=== PATIENT | female | born 1995 | race Caucasian/White ===

== ENCOUNTER 2018-02-06 18:29 | Emergency (ER) | payer MEDICAID ==
[2018-02-06] MEDS ORDERED: Sulfamethoxazole/Trimethoprim 800-160 MG Tab PO ONE ×2 (20:14→21:00)
[2018-02-06] MEDS ORDERED: Sulfamethoxazole/Trimethoprim 800-160 MG Tab ONE (20:59)
--- NOTE | 2018-02-07 00:12 | EDM.PDOC ---
ED HPI GENERAL MEDICAL PROBLEM - General Chief Complaint: Upper Extremity Injury/Pain Stated Complaint: CUT L FINGER Time Seen by Provider: 02/06/18 19:30 Source of Information: Reports: Patient History Limitations: Reports: No Limitations - History of Present Illness INITIAL COMMENTS - FREE TEXT/NARRATIVE: c/o knife injury L hand at home a kitchen knife entered palm of L hand works making medical parts, uses hands - Related Data Allergies Allergy/AdvReac Type Severity Reaction Status Date / Time codeine Allergy Hives Verified 08/26/14 07:55 Penicillins Allergy Hives Verified 08/26/14 07:55 Pertussis Vaccines Allergy Other Verified 02/06/18 19:09 Home Meds: Home Meds Sulfamethoxazole/Trimethoprim [Bactrim Ds Tablet] 1 each PO BID #14 tablet 02/06 [Rx] Past Medical History Cardiovascular History: Reports: Arrhythmia Social & Family History - Family History Family Medical History: Noncontributory - Tobacco Use Smoking Status *Q: Never Smoker - Caffeine Use Caffeine Use: Reports: None - Recreational Drug Use Recreational Drug Use: No Review of Systems - Review of Systems Review Of Systems: See Below Constitutional: Reports: No Symptoms Eyes: Reports: No Symptoms Ears: Reports: No Symptoms Nose: Reports: No Symptoms Mouth/Throat: Reports: No Symptoms Respiratory: Reports: No Symptoms Cardiovascular: Reports: No Symptoms GI/Abdominal: Reports: No Symptoms Genitourinary: Reports: No Symptoms Musculoskeletal: Reports: No Symptoms Skin: Reports: Wound Neurological: Reports: No Symptoms Psychiatric: Reports: No Symptoms ED EXAM, GENERAL - Physical Exam Exam: See Below Exam Limited By: No Limitations General Appearance: Alert, WD/WN, No Apparent Distress Skin Exam: Other (L hand with 5 mm entry wound over distal 5th MC just proximal to the 5th MCP, full flex/ext at DIP and PIP, LT intact, linear, wound margins only 1 mm, depth perhaps 7-8 mm as per estimated of , likely hit bone altho no bony tenderness) Course - Vital Signs Last Recorded V/S: Last Vital Signs Temp 36.4 C 02/06/18 18:29 Pulse 62 02/06/18 18:29 Resp 20 02/06/18 18:29 BP 118/85 02/06/18 18:29 Pulse Ox 100 02/06/18 18:29 - Orders/Labs/Meds Meds: Medications Discontinued Medications Generic Name Dose Route Start Last Admin Trade Name Hermes PRN Reason Stop Dose Admin Trimethoprim/Sulfamethoxazole Confirm 02/06/18 20:59 Septra Ds Administered 02/06/18 21:00 Dose 1 tab .ROUTE .STK-MED ONE Trimethoprim/Sulfamethoxazole 1 tab 02/06/18 20:14 Septra Ds PO 02/06/18 20:15 ONETIME ONE Departure - Departure Time of Disposition: 20:12 Disposition: Home, Self-Care 01 Condition: Good Clinical Impression: Laceration of skin of left palm - Discharge Information Prescriptions: Sulfamethoxazole/Trimethoprim [Bactrim Ds Tablet] 1 each PO BID #14 tablet Referrals: Rich Segovia MD [Primary Care Provider] - Forms: ED Department Discharge Additional Instructions: For possible infection, take Bactrim DS 1 tab 2 times a day for 7 days. For pain, if needed, take ibuprofen 200 mg 4 tabs 3 times a day. Keep splint and Hakeem wrap clean and dry. Use splint for 3 days. See your doctor in 2 days. Return to ED for any increase in redness, swelling, pain, warmth, fever or drainage.
[2018-02-07 20:39] VITALS: BP 113/82
== END 2018-02-06 21:03 | disposition home or self-care (01) ==
LOC: FB.ED 18:29
DX: S61.412A Laceration without foreign body of left hand, initial encounter (principal); Z88.5 Allergy status to narcotic agent; Z88.0 Allergy status to penicillin; Z88.7 Allergy status to serum and vaccine; W26.0XXA Contact with knife, initial encounter
CPT/HCPCS: 29125; 99283; A9270